=== PATIENT | female | born 1935 | race Caucasian/White ===

== ENCOUNTER 2017-01-28 16:45 | Emergency (ER) | payer MEDICARE ==
--- NOTE | 2017-01-28 19:29 | DIAGNOSTIC IMAGING REPORT ---
PROCEDURE: ABDOMEN/PELVIS WITH CONTRAST CLINICAL INDICATION: ABDOMINAL PAIN TECHNIQUE: 125 ml of Isovue 300 were injected intravenously and axial images were obtained of the abdomen and pelvis with sagittal and coronal reformations. COMPARISON: None. FINDINGS: ABDOMEN: There is mild diffuse intrahepatic biliary dilatation, distended gallbladder, and prominent common duct measuring between nine and 10 mm. There is a diverticulum measuring approximately 3 cm arising from the is second portion of the duodenum at the ampulla and extending cranially and posteriorly to the duodenal sweep. It contains an air-fluid level. No adjacent inflammation. The pancreas is normal without ductal dilatation. The distal stomach is decompressed and may demonstrate mild mural edema and slight mucosal hyperemia. No evidence of perforation or perigastric inflammation. Clear lung bases. Normal sized heart. No hiatal hernia. The liver, gallbladder, adrenal glands, kidneys, pancreas and spleen are normal. The abdominal aorta is normal in its course and caliber. Moderate calcific atherosclerosis. There are no suspicious calcifications, retroperitoneal adenopathy or masses. The upper small bowel loops, and mesentery are normal. Intact anterior abdominal wall. No free fluid or inflammation. Occasional diverticula in the ascending colon and sigmoid. No acute inflammation. PELVIS: The appendix and pelvic small bowel loops are normal. Normal amount of stool in the colon and rectum. The uterus is surgically absent. The urinary bladder, and pelvic vessels are normal. No adenopathy, free fluid, or pelvic mass. Sacralization of L5 with severe degenerative disc and endplate changes at the L4-5 level IMPRESSION: 1. Biliary and gallbladder dilatation (mild) without visible obstructing calculus. 2. 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 Correlation with LFTs recommended. 3. Changes of mild distal gastritis. 4. Occasional descending and sigmoid colon diverticulosis. 5. Post hysterectomy. 6. Findings called to the emergency room. All CT scans at this facility use dose modulation, iterative reconstruction, and/or weight-based dosing when appropriate to reduce radiation dose to as low as reasonably achievable.
--- NOTE | 2017-01-28 20:42 | ED ORDER SUMMARY ---
..... Patient: SOFI SCHNEIDER OrderSheet [facility] VisitID: [id number] [address] [place] [address] 81y, F Registration Date/Time: 01/28/2017 ORDER SHEET Weight: 68.0 kg (stated) Allergies: Codeine GENERAL ORDERS: CBC w Diff Urgent (16:59 01/28/2017 Dougie Willett) (Ack 17:04 TBergley) (17:13 KPacolin-Adeline R.N.) CMP Urgent (16:59 01/28/2017 Dougie Willett) (Ack 17:04 TBergley) (17:13 KPaTierra R.N.) UA-Culture if indicated Urgent (16:59 01/28/2017 Dougie Willett) (Ack 17:04 TBergley) (17:13 KPacolin-Adeline R.N.) PT with INR Urgent (16:59 01/28/2017 Dougie Willett) (Ack 17:04 TBergley) (17:13 KPacolin-Adeline R.N.) PTT Urgent (16:59 01/28/2017 oDugie Willett) (Ack 17:04 TBergley) (17:13 KPacolin-Adeline R.N.) Lipase Urgent (16:59 01/28/2017 Dougie Willett) (Ack 17:04 TBergley) (17:13 KPaTierra R.N.) Lactate, Serum Urgent (16:59 01/28/2017 Dougie Willett) (Ack 17:04 TBergley) (17:49 TBergley) CT Abd/Pel w Cont (Yes) (N/A) Urgent (17:48 01/28/2017 Dougie Willett) (17:52 TBergley) MEDICATION ORDERS: GI Cocktail WHITE PO 30 mL (NOW) (19:27 01/28/2017 Dougie Willett) (Ack 19:29 KPacolin-Adeline R.N.) (19:42 KPaTierra R.N.) Keflex PO 500 mg (NOW) (20:41 01/28/2017 Dougie Willett) (Ack 20:55 Antolin R.NJett) (20:58 Antolin R.NJett) IV FLUIDS: IV Saline Lock (16:59 01/28/2017 Dougie Willett) (17:13 Bee Elizalde.Karo) Morphine IV 4 mg (once now. may repeat once for pain >5/10 in 15 min) (17:47 01/28/2017 Dougie Willett) (Ack 18:02 obercinthya R.N.) (18:10 Araceli R.N.) ORDER SHEET NOTES: [Electronically signed by Bethany Moore R.N. (00:40 01/29/2017)] [Electronically signed by Tejinder Borrego Dr. (12:08 01/30/2017)] [Electronically locked/signed by Bethany Moore R.N. (00:40 01/29/2017)]
--- NOTE | 2017-01-28 20:42 | ED ORDER SUMMARY ---
..... Patient: SOFI SCHNEIDER OrderSheet [facility] VisitID: [id number] [address] [place] [address] 81y, F Registration Date/Time: 01/28/2017 ORDER SHEET Weight: 68.0 kg (stated) Allergies: Codeine GENERAL ORDERS: CBC w Diff Urgent (16:59 01/28/2017 Dougie Willett) (Ack 17:04 TBergley) (17:13 KPacolin-Adeline R.N.) CMP Urgent (16:59 01/28/2017 Dougie Willett) (Ack 17:04 TBergley) (17:13 KPaTierra R.N.) UA-Culture if indicated Urgent (16:59 01/28/2017 Dougie Willett) (Ack 17:04 TBergley) (17:13 KPacolin-Adeline R.N.) PT with INR Urgent (16:59 01/28/2017 Dougie Willett) (Ack 17:04 TBergley) (17:13 KPacolin-Adeline R.N.) PTT Urgent (16:59 01/28/2017 Dougie Willett) (Ack 17:04 TBergley) (17:13 KPacolin-Adeline R.N.) Lipase Urgent (16:59 01/28/2017 Dougie Willett) (Ack 17:04 TBergley) (17:13 KPaTierra R.N.) Lactate, Serum Urgent (16:59 01/28/2017 Dougie Willett) (Ack 17:04 TBergley) (17:49 TBergley) CT Abd/Pel w Cont (Yes) (N/A) Urgent (17:48 01/28/2017 Dougie Willett) (17:52 TBergley) MEDICATION ORDERS: GI Cocktail WHITE PO 30 mL (NOW) (19:27 01/28/2017 Dougie Willett) (Ack 19:29 KPacolin-Adeline R.N.) (19:42 KPaTierra R.N.) Keflex PO 500 mg (NOW) (20:41 01/28/2017 Dougie Willett) (Ack 20:55 Antolin R.NJett) (20:58 Antolin R.NJett) IV FLUIDS: IV Saline Lock (16:59 01/28/2017 Dougie Willett) (17:13 Bee Elizalde.Karo) Morphine IV 4 mg (once now. may repeat once for pain >5/10 in 15 min) (17:47 01/28/2017 Dougie Willett) (Ack 18:02 obercinthya R.N.) (18:10 Araceli R.N.) ORDER SHEET NOTES: [Electronically signed by Bethany Moore R.N. (00:40 01/29/2017)] [Electronically signed by Tejinder Borrego Dr. (12:08 01/30/2017)] [Electronically locked/signed by Bethany Moore R.N. (00:40 01/29/2017)]
--- NOTE | 2017-01-28 20:42 | ED CLINICAL REPORT ---
Clinical Report - Physicians/Mid Levels [facility] [address] [place] [address] 01/28/2017 16:52 Patient: SOFI SCHNEIDER Time Seen: 1645. Arrived- By private vehicle. Historian- patient. HISTORY OF PRESENT ILLNESS Chief Complaint: ABDOMINAL PAIN. This started today and is still present and worsening. It was gradual in onset and has been constant but is not gone now. It is described as "pain" and sharp. No radiation. It is described as located in the epigastric area. At its maximum, severity described as severe. When seen in the E.D., severity described as severe. Modifying factors- (does not know makes it better or worse). The patient has had nausea. No loss of appetite, vomiting or diarrhea. No additional abdominal pain. (had recently stopped taking her antacid medication.). No recent travel. Similar symptoms previously: None. Recent medical care: Not recently seen/assessed. REVIEW OF SYSTEMS All systems otherwise negative, except as recorded above. PAST HISTORY See nurses notes. Medications: Sertraline HCl Oral. Omeprazole Oral. Allergies: Codeine. SOCIAL HISTORY Never smoker. Occasional alcohol use. No drug use. No recent travel. Is a local resident. ADDITIONAL NOTES The nursing notes have been reviewed. PHYSICAL EXAM Vital Signs: 01/28/2017 16:58 BP: 174/78. HR: 76. RR: 19. O2 saturation: 99%. Temp: 98.1 F. Pain level now: 9/10. Oxygen saturation normal. Appearance: Alert. Oriented X3. Patient in moderate distress. (ontoxic in appearance). Eyes: Pupils equal, round and reactive to light. Eyes normal inspection. ENT: Ears normal. Nose normal. Pharynx normal. Neck: Normal inspection. Neck supple. CVS: Normal heart rate and rhythm. Heart sounds normal. Pulses normal. Respiratory: No respiratory distress. Breath sounds normal. Chest nontender. Abdomen: Soft. Moderate tenderness in the epigastric area. Bowel sounds normal. No organomegaly. No mass. (negative Ceballos's. No tenderness at McBurney's.). Skin: Skin warm and dry. Normal skin color. No rash. Normal skin turgor. Extremities: Extremities exhibit normal ROM. No lower extremity edema. Neuro: Oriented X 3. No motor deficit. No sensory deficit. LABS, X-RAYS, AND EKG Laboratory Tests: UA-Culture if indicated: (MABEL: 01/28/2017 17:05) ( [facility] 01/28/2017 17:28) Final results Test Result Flag Units (Reference) URINE COLOR YELLOW URINE APPEARANCE SL CLOUDY URINE GLUCOSE NEGATIVE (NEGATIVE) URINE BILIRUBIN NEGATIVE (NEGATIVE) URINE KETONE NEGATIVE (NEGATIVE) URINE SPECIFIC GRAVITY 1.020 (1.010-1.030) URINE PH 6.0 (5.0-8.0) URINE PROTEIN NEGATIVE (NEGATIVE) URINE UROBILINOGEN 1.0 EU/dL (0.2-1.0) URINE NITRITE NEGATIVE (NEGATIVE) URINE BLOOD 2+ (NEGATIVE) URINE LEUK ESTERASE POSITIVE (NEGATIVE) URINE RBC 1-3 rbc/hpf (0-1) URINE WBC 3-5 wbc/hpf (0-1) URINE EPITHELIAL CELLS 1-3 EPI/hpf (0-5) URINE BACTERIA FEW (1+) (NONE SEEN) URINE COMMENT CULTURE INDICATED URINE CULTURES ARE SET-UP BASED ON THE FOLLOWING CRITERIA:POSITIVE NITRITEPOSITIVE LEUKOCYTE ESTERASEGREATER THAN 10 WHITE BLOOD CELLSMODERATE (2+) OR GREATER BACTERIA CBC w Diff: (MABEL: 01/28/2017 17:05) ( [facility] 01/28/2017 17:20) Final results Test Result Flag Units (Reference) WHITE BLOOD COUNT 8.5 K/uL (4.5-11.5) RED BLOOD COUNT 4.24 M/uL (4.00-5.20) HEMOGLOBIN 13.8 gm/dL (12.0-16.0) HEMATOCRIT 40.4 % (36.0-46.0) MEAN CELL VOLUME 96 fL (80-100) MEAN CORPUSCULAR HGB 33 pg (26-34) MEAN CORPUSCULAR HGB CONC 34 g/dL (31-37) RED CELL DISTRIBUTION WIDTH 13.4 % (11.6-14.8) PLATELET COUNT 209 K/uL (150-400) NEUTROPHIL % 69.1 % (50-75) LYMPH % 23.0 L % (25-40) MONO % 6.5 % (3-14) EOSINOPHIL % 1.0 % (0-4) BASOPHIL % 0.4 % (0-2) PT with INR: (MABEL: 01/28/2017 17:05) ( [facility] 01/28/2017 17:22) Final results Test Result Flag Units (Reference) INR 1.0 (0.8-1.2) Low Intensity Therapy: INR 1.5-2.0 PT range 18.5-23.1Mod.Intensity Therapy: INR 2.0-3.0 PT range 23.1-31.5High Intensity Therapy: INR 2.5-3.5 PT range 27.4-35.5High Intensity Therapy 2: INR 3.0-4.0 PT range 31.5-39.3 APTT 28 SECONDS (24-34) Lactate, Serum: (MABEL: 01/28/2017 17:50) ( [facility] 01/28/2017 18:29) Final results Test Result Flag Units (Reference) LACTIC ACID 1.4 mmol/L (0.4-2.0) CMP: (MABEL: 01/28/2017 17:05) ( [facility] 01/28/2017 17:31) Final results Test Result Flag Units (Reference) GLUCOSE 126 H mg/dL (70-110) BUN 17 mg/dL (7-18) CREATININE 0.8 mg/dL (0.6-1.3) Estimated GFR >60 mL/min Estimated GFR- >60 mL/min Note: Persistent reduction over 3 months in eGFR<60 mL/min/1.73 m2 defines CKD. Patients with eGFR values>=60 mL/min/1.73 m2 may also have CKD if evidence ofpersistent proteinuria. Additional information may be foundat www.kidney.org. SODIUM 145 mmol/L (136-145) POTASSIUM 3.9 mmol/L (3.5-5.1) CHLORIDE 106 mmol/L (98-107) CARBON DIOXIDE 25 mmol/L (21-32) CALCIUM 9.0 mg/dL (8.5-10.1) TOTAL PROTEIN 7.8 g/dL (6.4-8.2) ALBUMIN 4.0 g/dL (3.3-5.0) BILIRUBIN, TOTAL 0.8 mg/dL (0.0-1.0) ALKALINE PHOSPHATASE 88 U/L (46-116) AST (SGOT) 82 H U/L (15-37) ALT (SGPT) 52 U/L (12-78) LIPASE 108 U/L (73-393) . PROGRESS AND PROCEDURES Course of Care: The patient is a pleasant 81-year-old female presented for evaluation of epigastric abdominal pain. Patient recently stopped taking her antacid medication. At this time differential diagnosis includes peptic ulcer disease, acute cholecystitis, peritonitis,and less likely AAA. Patient will be evaluated with CT scan of the abdomen and pelvis with contrast. laboratory studies including urinalysis and also been ordered. Patient appears nontoxic cover is in a moderate amount of distress. Pain medication has been provided. We'll reevaluate once the pain medication as been given. Patient was reevaluated and found to be resting in bed in much more comfortable position. Patient states he feels extremely relieved however does state that she still feels it slightly. Patient also given a GI cocktail. Rest the patient's laboratory studies is pending at this time. However at this point in timeappears to be reassuring. Blood pressure is noted to be not hypotensive. The patient's workup was remarkable for the findings above. No acute findings noted on patient's CT scan to explain patient's severe abdominal pain however patient with recent cessation of antacid medication and likely with peptic ulcer disease versus gastroesophageal reflux/gastritis. Had a discussion with the patient in regards to her presentation here in the emergency department for workup, diagnosis, home care, follow-up, and return precautions. All questions have been answered. The patient expressed understanding of these instructions and was agreeable to that. Prior to patient's departure from the emergency department she is noted to have a nonsurgical abdomen. Patient is nontoxic and in no acute distress. Pain is now completely relieved. Tonight the patient is admitted to the hospital or require further emergency department workup/evaluation given her negativestudies here as well as resolution of pain. CLINICAL IMPRESSION Acute epigastric abdominal pain. 01/28/2017 20:01 BP: 160/71. HR: 73. RR: 18. Pain level now: 0/10. 01/28/2017 19:43 BP: 160/71. HR: 72. RR: 18. O2 saturation: 96%. Pain level now: 2/10. Blood pressure normal. Oxygen saturation normal. Acute gastritis Acute urinary tract infection. INSTRUCTIONS Warnings: SEDATIVE MEDICATION: You were given sedative medication during your visit. Do not drive or operate dangerous machinery. CONTROLLED SUBSTANCE WARNINGS. GENERAL WARNINGS: Return or contact your physician immediately if your condition worsens or changes unexpectedly, if not improving as expected, or if other problems arise. SPECIFICALLY, return if you develop pain, fever, vomiting, the inability to keep fluids down, blood in vomitus, blood in diarrhea, fainting or lightheadedness. Your Current Medications: CONTINUE TAKING THE FOLLOWING MEDICATIONS: Omeprazole Oral. Sertraline HCl Oral. Prescription Medications: Hydrocodone/APAP 5mg / 325mg: take 1 orally every 6 hours as needed for pain. Dispense ten (10). No refill. Carafate 1 gm tablets: take 1 orally at bedtime as needed for indigestion, upset stomach or heartburn. Dispense thirty (30). No refills. Substitution is permissible. Cephalexin 500 mg: take 1 capsule orally every 8 hours for 5 days. No refill. (disp 15 caps) Follow-up: Return to the emergency department as needed. Follow up with your doctor in three days. Reason for referral: recheck today's concerns. Summary of care provided to patient via paper. Screening today revealed the patient's blood pressure to be in the normal range. The patient should follow up with a primary care provider for blood pressure management. Understanding of the discharge instructions verbalized by patient and family. (Electronically signed by Tejinder Borrego Dr. 01/30/2017 12:08)
--- NOTE | 2017-01-28 20:42 | ED NURSING NOTES ---
Clinical Report - Nurses [facility] [address] [place] [address] 01/28/2017 16:52 Patient: SOFI SCHNEIDER TRIAGE Triage time 16:58 Jan 28 2017. Chief Complaint: ABDOMINAL PAIN and (pt reports sudden onset of epigastric pain after taking a sudafed and orange drink "I had acid reflux and it burnt my throat" pt arrives tearful, describes as "a terrible cramp"). Alert. --17:08 Bethany Moore R.N. 16:58 01/28/17. BP: 174/78. HR: 76. RR: 19 (regular and shallow). O2 saturation: 99% on room air. Temp: 98.1 F. Pain level now: 06/03. --17:08 Bethany Moore R.N. Weight: 68 kg stated. Height/Length: 60 inches Per Patient. BMI: 29.3. --17:03 Bethany Moore R.N. Medications Omeprazole Oral. --17:01 Bethany Moore R.N. Sertraline HCl Oral. --17:01 Bethany Moore R.N. Medication/allergy information source: the patient. --17:08 Bethany Moore R.N. Allergies Codeine. --17:02 Bethany Moore R.N. History Arrived by private vehicle. Historian: patient and family. Accompanied by family and (daughter). ( pt does not have her med list and is unsure - pts spouse passed on November 25 per daughter "and she's been very stressed since"). She has had moderate abdominal pain (30 minutes). Last oral intake by patient was (45 minutes). Treatment CURATOR OF PHOTOGRAPHY AND PRINTS: None. (sudafed). SOCIAL HX: Smoker- current status unknown (cigarette). Occasional alcohol use; consumes wine. No recent travel. No infectious disease exposure. No known contact with a sick individual. ABUSE ASSESSMENT: No report of abuse. SELF HARM ASSESSMENT: A self harm assessment was performed. The patient answered "no" to the question "Have you recently felt down, depressed, or hopeless?", "Have you noticed less interest or pleasure in doing things?", "Do you have thoughts of harming or killing yourself?", "Are you here because you tried to hurt yourself?", "Have you ever tried to hurt yourself before today?", "Have you recently had thoughts about harming or killing others?" and "Do you have any dangerous items in your possession?". NUTRITIONAL RISK ASSESSMENT: The nutritional risk assessment revealed no deficiencies. FUNCTIONAL ASSESSMENT: Functional assessment: no impairments noted. LEARNING NEEDS ASSESSMENT: The learning needs assessment revealed no barriers. SKIN INTEGRITY ASSESSMENT: Skin integrity risk assessment completed. No skin integrity risk identified. --17:08 Bethany Moore R.N. PROBLEMS: Breast Cancer. Hypertension. Elevated Cholesterol. Diabetes Mellitus. Depression. --17:04 Bethany Moore R.N. ADDITIONAL SURGERIES: Breast Augmentation. Hysterectomy. --17:04 Bethany Moore R.N. Interventions ID and allergy band on patient. To treatment room. --17:08 Bethany Moore R.N. PHYSICAL ASSESSMENT Ambulatory to room. Patient gowned. GENERAL / NEURO / PSYCH: Alert. Oriented X 4. Appears in pain and anxious. HEENT: Mucous membranes are pink. RESPIRATORY: Respirations not labored. Breath sounds within normal limits. CVS: Capillary refill less than 2 seconds. GI / : Abdomen soft. Bowel sounds within normal limits. No diarrhea. No vaginal discharge. Stool color normal. No blood in the stool. SKIN: Skin is warm and dry. --17:10 Bethany Moore R.N. NURSING PROGRESS NOTES Pulse oximeter and NIBP monitor placed on patient; monitor alarms on. Patient gowned. Head of bed elevated. Patient ID band checked for patient name and birthdate: patient confirmed. Instructions provided to collect clean catch urine and patient verbalized understanding. Clean catch urine collected; sample sent to lab for urinalysis. Specimen labeled in the presence of the patient. Two patient identifiers checked. Call light placed in reach. Side rails up x 1. Bed placed in lowest position. Brakes of bed on. Patient ready for evaluation- chart flagged. Patient waiting for evaluation. --17:11 Bethany Moore R.N. 17:06 01/28/2017 Site #1 started via IV in the left antecubital space with an 22g angiocath; one attempt. Blood drawn: rainbow set. Labeled in the presence of the patient and sent to the lab. Saline lock flushed with 10 mL saline (placed by Bita HATHAWAY). --17:11 Bethany Moore R.N. ( pt during triage reports decrease in pain, pt also remembers she hasn't taken her omeprazole for a week.). --17:13 Bethany Moore R.N. 17:14 01/28/17. BP: 165/64. HR: 72. --17:14 Bethany Moore R.N. 18:10 01/28/2017 Morphine IVP 4 mg given over 1 minute(s) via site #1. Allergies verified, confirmed 5 rights and sedative warning given to the patient. IV patency established. IV site checked: no pain, redness, or swelling. IV flushed thoroughly pre- and post-medication administration. IVP given by RN. --18:[address] R.N. Patient returned from CT by stretcher with tech. --18:[address] R.N. ( Patient rates pain at 3/10 at this time.). --18:[address] R.N. 18:50 01/28/17. BP: 154/60. HR: 72 (regular). --18:50 Bethany Moore R.N. Patient identifiers checked. Call light placed in reach. Side rails up. Bed placed in lowest position. Brakes of bed on. ( daughter at bedside). --18:51 Bethany Moore R.N. 19:37 01/28/2017 GI COCKTAIL WHITE (Simethicone) PO 30 mL given. Allergies verified and confirmed 5 rights. --19:42 Page-Kuchan, Karyol, R.N. Call light placed in reach. Side rails up x 1. ( pt reports improvement in symptoms, reports "it's not cramping anymore, but I can still feel it is there" pt given white gi cocktail as ordered.). --19:44 Bethany Moore R.N. 19:43 01/28/17. BP: 160/71. HR: 72. RR: 18. O2 saturation: 96%. Pain level now: 210. --19:44 Bethany Moore R.N. ( pt now pain free following gi cocktail). --20:01 Bethany Moore R.N. 20:01 01/28/17. BP: 160/71. HR: 73. RR: 18. Pain level now: 0/10. --20:02 Bethany Moore R.N. 20:58 01/28/2017 Keflex (Cephalexin) PO Capsules 500 mg given. Allergies verified and confirmed 5 rights. --20:58 Davian Tejada R.N. 20:58 01/28/2017 GI COCKTAIL WHITE PO Response: no adverse reaction symptoms are the same. The patient feels better. --20:58 Davian Tejada R.N. 20:58 01/28/2017 Morphine IVP Response: no adverse reaction pain is improving. Symptoms have improved the patient feels better. --20:58 Davian Tejada R.N. DISPOSITION / DISCHARGE Departure time: 21:Jan 28 2017. Condition at departure: improved. No learning barriers present. Discharge instructions provided and reviewed with the patient. Reviewed medication(s) side effects, precautions, dosing and course information. Prescription(s) given to the patient. Reviewed referral to a primary care physician. Patient verbalized understanding. Written instructions provided in [place]. The patient was discharged home and accompanied by family. She left the Emergency Department ambulatory and via private vehicle. Family member driving. FALL RISK ASSESSMENT: Fall risk assessment completed. No fall risk identified. --21:09 Carmelita Thomas R.N. 21:01 01/28/17. BP: 139/52. HR: 66. RR: 16. O2 saturation: 94%. Pain level now: 0/10. --21:09 Carmelita Thomas R.N. Locked/Released at 01/29/2017 0:41 by Bethany Moore R.N.
--- NOTE | 2017-01-30 12:08 | ED DISCHARGE INSTRUCTIONS ---
Patient: SOFI SCHNEIDER General Instructions [facility] VisitID: [id number] [address] [place] [address] 81y, F Registration Date/Time: 01/28/2017 Acute epigastric abdominal pain. 01/28/2017 20:01 BP: 160/71. HR: 73. RR: 18. Pain level now: 0/10. 01/28/2017 19:43 BP: 160/71. HR: 72. RR: 18. O2 saturation: 96%. Pain level now: 2/10. Blood pressure normal. Oxygen saturation normal. Acute gastritis Acute urinary tract infection. INSTRUCTIONS Warnings: SEDATIVE MEDICATION: You were given sedative medication during your visit. Do not drive or operate dangerous machinery. CONTROLLED SUBSTANCE WARNINGS. GENERAL WARNINGS: Return or contact your physician immediately if your condition worsens or changes unexpectedly, if not improving as expected, or if other problems arise. SPECIFICALLY, return if you develop pain, fever, vomiting, the inability to keep fluids down, blood in vomitus, blood in diarrhea, fainting or lightheadedness. Your Current Medications: CONTINUE TAKING THE FOLLOWING MEDICATIONS: Omeprazole Oral. Sertraline HCl Oral. Prescription Medications: Hydrocodone/APAP 5mg / 325mg: take 1 orally every 6 hours as needed for pain. Dispense ten (10). No refill. Carafate 1 gm tablets: take 1 orally at bedtime as needed for indigestion, upset stomach or heartburn. Dispense thirty (30). No refills. Substitution is permissible. Cephalexin 500 mg: take 1 capsule orally every 8 hours for 5 days. No refill. (disp 15 caps) Follow-up: Return to the emergency department as needed. Follow up with your doctor in three days. Reason for referral: recheck today's concerns. Summary of care provided to patient via paper. Screening today revealed the patient's blood pressure to be in the normal range. The patient should follow up with a primary care provider for blood pressure management. Understanding of the discharge instructions verbalized by patient and family. ADDITIONAL INFORMATION Abdominal Pain, Unknown Cause (Female) The exact cause of your abdominal (stomach) pain is not certain. This does not mean that this is something to worry about, or the right tests were not done. Everyone likes to know the exact cause of the problem, but sometimes with abdominal pain, there is no clear-cut cause, and this could be a good thing. The good news is that your symptoms can be treated, and you will feel better. Your condition does not seem serious now; however, sometimes the signs of a serious problem may take more time to appear. For this reason,it is important for you to watch for any new symptoms, problems,or worsening of your condition. Over the next few days, the abdominal pain may come and go, or be continuous. Other common symptoms can include nausea and vomiting. Sometimes it can be difficult to tell if you feel nauseous, you may just feel bad and not associate that feeling with nausea. Constipation, diarrhea, and a fever may go along with the pain. The pain may continue even if treated correctly over the following days. Depending on how things go, sometimes the cause can become clear and may require further or different treatment. Additional evaluations, medications, or tests may be needed. Home care Your health care provider may prescribe medications for pain, symptoms, or an infection. Follow the health care provider's instructions for taking these medications. General care Rest until your next exam. No strenuous activities. Try to find positions that ease discomfort. A small pillow placed on the abdomen may help relieve pain. Something warm on your abdomen (such as a heating pad) may help, but be careful not to burn yourself. Diet Do not force yourself to eat, especially if having cramps, vomiting, or diarrhea. Water is important so you do not get dehydrated. Soup may also be good. Sports drinks may also help, especially if they are not too acidic. Make sure you don't drink sugary drinks as this can make things worse. Take liquids in small amounts. Do not guzzle them. Caffeine sometimes makes the pain and cramping worse. Avoid dairy products if you have vomiting or diarrhea. Don't eat large amounts at a time. Wait a few minutes between bites. Eat a diet low in fiber (called a low-residue diet). Foods allowed include refined breads, white rice, fruit and vegetable juices without pulp, tender meats. These foods will pass more easily through the intestine. Avoid whole-grain foods, whole fruits and vegetables, meats, seeds and nuts, fried or fatty foods, dairy, alcohol and spicy foods until your symptoms go away. Follow-up care Follow up with your health care provider as instructed, or if your pain does not begin to improve in the next 24 hours. When to seek medical care Seek prompt medical care if any of the following occur: Pain gets worse or moves to the right lower abdomen New or worsening vomiting or diarrhea Swelling of the abdomen Unable to pass stool for more than three days Fever of 100.4F (38C) or higher, or as directed by your healthcare provider. Blood in vomit or bowel movements (dark red or black color) Jaundice (yellow color of eyes and skin) Weakness, dizziness Chest, arm, back, neck or jaw pain Unexpected vaginal bleeding or missed period Call 911 Call emergency services if any of the following occur: Trouble breathing Confusion Fainting or loss of consciousness Rapid heart rate Seizure Gastritis Versus Ulcer (No Antibiotic Tx) The symptoms of gastritis and peptic ulcer are very similar. Both can cause a dull ache or burning pain in the upper abdomen. Other symptoms include nausea, vomiting, loss of appetite, and belching or bloating. Blood in the vomit or stools (red or black) is a sign of bleeding in the stomach. This requires immediate medical attention. A Peptic Ulcer is an open sore in the lining of the stomach or duodenum (upper intestine). The most common cause of peptic ulcer disease is a bacterial infection (H pylori) in the stomach. Another common cause is taking anti-inflammatory medications (such as ibuprofen, prednisone, and aspirin). Gastritis is an irritation of the stomach lining. It can be acute (recent) or chronic (lasting a long time). Gastritis can be caused by overuse of alcohol or anti-inflammatory medications (such as aspirin, ibuprofen, prednisone). H pyloriinfection can also cause chronic gastritis. Tests for H pyloriare used to screen for bacterial infection. If no infection is found, ulcer and gastritis can be treated by stopping the cause, such as anti-inflammatory medications, alcohol, caffeine, and tobacco, and treating with antacids plus an acid asael medication. If H pylori infection is found, antibiotics will be prescribed along with an acid asael. Persons 55 years and older may undergo other tests before treatment is started. Two common tests are used to evaluate your symptoms. An upper GI series is an x-ray taken after you drink a chalky liquid called barium. This coats the stomach and allows an ulcer to show up on the x-ray. Another test is called endoscopy during which a long thin tube called an endoscope is passed down your throat to the stomach. A camera at the end of the scope allows the doctor to view inside the stomach to check the cause of your symptoms. Home Care: Take the prescribed acid asael medication for the full course of treatment even if you begin to feel better sooner. This medication can take up to several days to fully control your symptoms. If you cant afford the prescribed medication, you can try [id number] acid blockers, such as Pepcid AC, Tagamet, Zantac, or Aciphex. If these do not relieve your symptoms, a stronger acid-asael can be tried, such as Prilosec OTC. If you have been prescribed an antibiotic to treat H pyloriinfection, finish the full course of medication. Do so even if you begin to feel better sooner. If you stop the medication too soon, the infection can return and be harder to treat. You can use antacids, such as Tums, Rolaids, Mylanta, or Maalox, for pain. This will be useful the first few days after starting acid blockers when the blockers havent started working yet. Follow the directions on the label. Liquid antacids may work better than tablets. Note that antacids can interfere with absorption of certain medications. Specifically, do not take Tagamet (cimetidine), Zantac (ranitidine), or Carafate (sucralfate) within 1 hour of taking an antacid. Talk with your pharmacist if you have any questions. Although foods do not cause an ulcer, symptoms can be worsened by certain foods. Limit or avoid fatty, fried, and spicy foods, as well as coffee, chocolate, mint, and foods with high acid content such as tomatoes and citrus fruit and juices (orange, grapefruit, lemon). Avoid alcohol, caffeine, and tobacco, which can delay healing. Avoid aspirin and anti-inflammatory medications such as ibuprofen (Advil, Motrin) and naproxen (Naprosyn, Aleve). Acetaminophen (Tylenol) is safe to use. Do not take more than the amount listed on the label. Follow Up with your doctor or as advised. Further testing may be needed. If you do not begin to improve over the next 4 days, contact your doctor. If you had tests, youll be notified of any new findings that affect your care. Get Prompt Medical Attention if any of the following occur: Stomach pain gets worse or moves to the lower right abdomen (appendix area) Chest pain appears or gets worse, or spreads to the back, neck, shoulder, or arm Frequent vomiting (cant keep down liquids) Blood in the stool or vomit (red or black in color) Feeling weak or dizzy, fainting, or trouble breathing Fever of 100.4F (38C) or higher, or as directed by your healthcare provider Bladder Infection,Female (Adult) A bladder infection ("cystitis" or "UTI") usually causes a constant urge to urinate and a burning when passing urine. Urine may be cloudy, smelly or dark. There may be pain in the lower abdomen. A bladder infection occurs when bacteria from the vaginal area enter the bladder opening (urethra). This can occur from sexual intercourse, wearing tight clothing, dehydration and other factors. Home Care: Drink lots of fluids (at least 6-8 glasses a day, unless you must restrict fluids for other medical reasons). This will force the medicine into your urinary system and flush the bacteria out of your body. Avoid sexual intercourse until your symptoms are gone. Avoid caffeine, alcohol and spicy foods. These can irritate the bladder. A bladder infection is treated with antibiotics. You may also be given Pyridium (generic = phenazopyridine) to reduce the burning sensation. This medicine will cause your urine to become a bright orange color. The orange urine may stain clothing. You may wear a pad or panty-liner to protect clothing. Preventing Future Infections: Always wipe from front to back after a bowel movement. Keep the genital area clean and dry. Drink plenty of fluids each day to avoid dehydration. Both sexual partners should wash before intercourse. Urinate right after intercourse to flush out the bladder. Wear cotton underwear and cotton-lined panty hose; avoid tight-fitting pants. If you are on control pills and are having frequent bladder infections, discuss with your doctor. Follow Up: Return to this facility or see your doctor if ALL symptoms are not gone after three days of treatment. Get Prompt Medical Attention if any of the following occur: Fever of 100.4F (38C) or higher, or as directed by your healthcare provider No improvement by the third day of treatment Increasing back or abdominal pain Repeated vomiting; unable to keep medicine down Weakness, dizziness or fainting Vaginal discharge Pain, redness or swelling in the labia (outer vaginal area) Hydrocodone Bitartrate, Acetaminophen Oral tablet What is this medicine? ACETAMINOPHEN; HYDROCODONE (a set a JACOBO mesfin fen; carmen droe KOE done) is a pain reliever. It is used to treat mild to moderate pain. How should I use this medicine? Take this medicine by mouth. Swallow it with a full glass of water. Follow the directions on the prescription label. If the medicine upsets your stomach, take the medicine with food or milk. Do not take more than you are told to take. Talk to your blankbook forwarder regarding the use of this medicine in children. This medicine is not approved for use in children. What side effects may I notice from receiving this medicine? Side effects that you should report to your doctor or health primary care provider as soon as possible: allergic reactions like skin rash, itching or hives, swelling of the face, lips, or tongue breathing problems confusion feeling faint or lightheaded, falls stomach pain yellowing of the eyes or skin Side effects that usually do not require medical attention (report to your doctor or health primary care provider if they continue or are bothersome): nausea, vomiting stomach upset What may interact with this medicine? alcohol antihistamines isoniazid medicines for depression, anxiety, or psychotic disturbances medicines for sleep muscle relaxants naltrexone narcotic medicines (opiates) for pain phenobarbital ritonavir tramadol What if I miss a dose? If you miss a dose, take it as soon as you can. If it is almost time for your next dose, take only that dose. Do not take double or extra doses. Where should I keep my medicine? Keep out of the reach of children. This medicine can be abused. Keep your medicine in a safe place to protect it from theft. Do not share this medicine with anyone. Selling or giving away this medicine is dangerous and against the law. Store at room temperature between 15 and 30 degrees C (59 and 86 degrees F). Protect from light. Keep container tightly closed. Throw away any unused medicine after the expiration date. Discard unused medicine and used packaging carefully. Pets and children can be harmed if they find used or lost packages. What should I tell my health care provider before I take this medicine? They need to know if you have any of these conditions: brain tumor Crohn's disease, inflammatory bowel disease, or ulcerative colitis drink more than 3 alcohol-containing drinks per day drug abuse or addiction head injury heart or circulation problems kidney disease or problems going to the bathroom liver disease lung disease, asthma, or breathing problems an unusual or allergic reaction to acetaminophen, hydrocodone, other opioid analgesics, other medicines, foods, dyes, or preservatives or trying to get breast-feeding What should I watch for while using this medicine? Tell your doctor or health primary care provider if your pain does not go away, if it gets worse, or if you have new or a different type of pain. You may develop tolerance to the medicine. Tolerance means that you will need a higher dose of the medicine for pain relief. Tolerance is normal and is expected if you take the medicine for a long time. Do not suddenly stop taking your medicine because you may develop a severe reaction. Your body becomes used to the medicine. This does NOT mean you are addicted. Addiction is a behavior related to getting and using a drug for a non-medical reason. If you have pain, you have a medical reason to take pain medicine. Your doctor will tell you how much medicine to take. If your doctor wants you to stop the medicine, the dose will be slowly lowered over time to avoid any side effects. You may get drowsy or dizzy when you first start taking the medicine or change doses. Do not drive, use machinery, or do anything that may be dangerous until you know how the medicine affects you. Stand or sit up slowly. There are different types of narcotic medicines (opiates) for pain. If you take more than one type at the same time, you may have more side effects. Give your health care provider a list of all medicines you use. Your doctor will tell you how much medicine to take. Do not take more medicine than directed. Call emergency for help if you have problems breathing. The medicine will cause constipation. Try to have a bowel movement at least every 2 to 3 days. If you do not have a bowel movement for 3 days, call your doctor or health primary care provider. Too much acetaminophen can be very dangerous. Do not take Tylenol (acetaminophen) or medicines that contain acetaminophen with this medicine. Many non-prescription medicines contain acetaminophen. Always read the labels carefully. Sucralfate Oral tablet What is this medicine? SUCRALFATE (ANDIE que fate) helps to treat ulcers of the intestine. How should I use this medicine? Take this medicine by mouth with a glass of water. Follow the directions on the prescription label. This medicine works best if you take it on an empty stomach, 1 hour before meals. Take your doses at regular intervals. Do not take your medicine more often than directed. Do not stop taking except on your doctor's advice. Talk to your blankbook forwarder regarding the use of this medicine in children. Special care may be needed. What side effects may I notice from receiving this medicine? Side effects that you should report to your doctor or health primary care provider as soon as possible: allergic reactions like skin rash, itching or hives, swelling of the face, lips, or tongue difficulty breathing Side effects that usually do not require medical attention (report to your doctor or health primary care provider if they continue or are bothersome): back pain constipation drowsy, dizzy dry mouth headache stomach upset, gas trouble sleeping What may interact with this medicine? antacid cimetidine digoxin ketoconazole phenytoin quinidine ranitidine some antibiotics like ciprofloxacin, norfloxacin, and ofloxacin theophylline thyroid hormones warfarin What if I miss a dose? If you miss a dose, take it as soon as you can. If it is almost time for your next dose, take only that dose. Do not take double or extra doses. Where should I keep my medicine? Keep out of the reach of children. Store at room temperature between 15 and 30 degrees C (59 and 86 degrees F). Keep container tightly closed. Throw away any unused medicine after the expiration date. What should I tell my health care provider before I take this medicine? They need to know if you have any of these conditions: kidney disease an unusual or allergic reaction to sucralfate, other medicines, foods, dyes, or preservatives or trying to get breast-feeding What should I watch for while using this medicine? Visit your doctor or health primary care provider for regular check ups. Let your doctor know if your symptoms do not improve or if you feel worse. Antacids should not be taken within one half hour before or after this medicine. Cephalexin Monohydrate Oral tablet What is this medicine? CEPHALEXIN (sef a MOMO in) is a cephalosporin antibiotic. It is used to treat certain kinds of bacterial infections It will not work for colds, flu, or other viral infections. How should I use this medicine? Take this medicine by mouth with a full glass of water. Follow the directions on the prescription label. This medicine can be taken with or without food. Take your medicine at regular intervals. Do not take your medicine more often than directed. Take all of your medicine as directed even if you think you are better. Do not skip doses or stop your medicine early. Talk to your blankbook forwarder regarding the use of this medicine in children. While this drug may be prescribed for selected conditions, precautions do apply. What side effects may I notice from receiving this medicine? Side effects that you should report to your doctor or health primary care provider as soon as possible: allergic reactions like skin rash, itching or hives, swelling of the face, lips, or tongue breathing problems pain or trouble passing urine redness, blistering, peeling or loosening of the skin, including inside the mouth severe or watery diarrhea unusually weak or tired yellowing of the eyes, skin Side effects that usually do not require medical attention (report to your doctor or health primary care provider if they continue or are bothersome): gas or heartburn genital or anal irritation headache joint or muscle pain nausea, vomiting What may interact with this medicine? probenecid some other antibiotics What if I miss a dose? If you miss a dose, take it as soon as you can. If it is almost time for your next dose, take only that dose. Do not take double or extra doses. There should be at least 4 to 6 hours between doses. Where should I keep my medicine? Keep out of the reach of children. Store at room temperature between 59 and 86 degrees F (15 and 30 degrees C). Throw away any unused medicine after the expiration date. What should I tell my health care provider before I take this medicine? They need to know if you have any of these conditions: kidney disease stomach or intestine problems, especially colitis an unusual or allergic reaction to cephalexin, other cephalosporins, penicillins, other antibiotics, medicines, foods, dyes or preservatives or trying to get breast-feeding What should I watch for while using this medicine? Tell your doctor or health primary care provider if your symptoms do not begin to improve in a few days. Do not treat diarrhea with over the counter products. Contact your doctor if you have diarrhea that lasts more than 2 days or if it is severe and watery. If you have diabetes, you may get a false-positive result for sugar in your urine. Check with your doctor or health primary care provider. You have been given the following additional information: Abdominal Pain, Unknown Cause, (Female) Gastritis Vs. Ulcer Bladder Infection, Female (Adult) Hydrocodone Bitartrate, Acetaminophen Oral tablet Sucralfate Oral tablet Cephalexin Monohydrate Oral tablet (Electronically signed by Tejinder Borrego Dr. 01/30/2017 12:08)
--- NOTE | 2017-01-30 12:08 | ED MAR SUMMARY ---
..... Medication Administration Record [facility] [address] [place] [address] Patient: SOFI SCHNEIDER Visit ID: [id number] 81y, F Weight: 68.0 kg Height/Length: 60 in BMI: 29.3 ALLERGIES: Codeine Given 18:10 01/28/[address] RAniceto Medication Administered: MORPHINE [IVP], Dose: 4 mg IVP over 1 minute(s), Site: #1 left AC. Medication Ordered: Morphine IV 4 mg (once now. may repeat once for pain >5/10 in 15 min). Given 19:37 01/28/2017 Bethany Moore RAniceto Medication Administered: GI COCKTAIL WHITE [PO] (SIMETHICONE), Dose: 30 mL PO. Medication Ordered: GI Cocktail WHITE PO 30 mL (NOW). Given 20:58 01/28/2017 Davian Tejada RJettNJett Medication Administered: KEFLEX [PO] (CEPHALEXIN), Dose: 500 mg Capsules PO. Medication Ordered: Keflex PO 500 mg (NOW).
--- NOTE | 2017-01-30 12:08 | ED MED RECONCILIATION SUMMARY ---
Patient: SOFI SCHNEIDER Medication Reconciliation Report [facility] VisitID: [id number] [address] [place] [address] 81y, F Registration Date/Time: 01/28/2017 Weight: 68.0 kg Height/Length: 60 in. BMI: 29.3 ALLERGIES: Codeine The patient's Home Medications are listed below: CONTINUE TAKING THE FOLLOWING MEDICATIONS: Omeprazole Oral Sertraline HCl Oral The source(s) of the original Home Medication information: patient The following Medications were given to the patient in the Emergency Department: Morphine [IVP] IVP 4 mg, administered: 01/28/2017 6:10:00 PM GI COCKTAIL WHITE [PO] PO 30 mL, administered: 01/28/2017 7:37:00 PM Keflex [PO] PO 500 mg, administered: 01/28/2017 8:58:00 PM The following Medications were prescribed to the patient: Hydrocodone/APAP 5mg / 325mg: take 1 orally every 6 hours as needed for pain. Dispense ten (10). No refill. -- Tejinder Borrego Dr. Carafate 1 gm tablets: take 1 orally at bedtime as needed for indigestion, upset stomach or heartburn. Dispense thirty (30). No refills. Substitution is permissible. -- Tejinder Borrego Dr. Cephalexin 500 mg: take 1 capsule orally every 8 hours for 5 days. No refill.(disp 15 caps) -- Tejinder Borrego Dr.
--- NOTE | 2017-01-30 12:08 | ED MAR SUMMARY ---
..... Medication Administration Record [facility] [address] [place] [address] Patient: SOFI SCHNEIDER Visit ID: [id number] 81y, F Weight: 68.0 kg Height/Length: 60 in BMI: 29.3 ALLERGIES: Codeine Given 18:10 01/28/[address] RAniceto Medication Administered: MORPHINE [IVP], Dose: 4 mg IVP over 1 minute(s), Site: #1 left AC. Medication Ordered: Morphine IV 4 mg (once now. may repeat once for pain >5/10 in 15 min). Given 19:37 01/28/2017 Bethany Moore RAniceto Medication Administered: GI COCKTAIL WHITE [PO] (SIMETHICONE), Dose: 30 mL PO. Medication Ordered: GI Cocktail WHITE PO 30 mL (NOW). Given 20:58 01/28/2017 Davian Tejada RJettNJett Medication Administered: KEFLEX [PO] (CEPHALEXIN), Dose: 500 mg Capsules PO. Medication Ordered: Keflex PO 500 mg (NOW).
--- NOTE | 2017-01-30 12:08 | ED MED RECONCILIATION SUMMARY ---
Patient: SOFI SCHNEIDER Medication Reconciliation Report [facility] VisitID: [id number] [address] [place] [address] 81y, F Registration Date/Time: 01/28/2017 Weight: 68.0 kg Height/Length: 60 in. BMI: 29.3 ALLERGIES: Codeine The patient's Home Medications are listed below: CONTINUE TAKING THE FOLLOWING MEDICATIONS: Omeprazole Oral Sertraline HCl Oral The source(s) of the original Home Medication information: patient The following Medications were given to the patient in the Emergency Department: Morphine [IVP] IVP 4 mg, administered: 01/28/2017 6:10:00 PM GI COCKTAIL WHITE [PO] PO 30 mL, administered: 01/28/2017 7:37:00 PM Keflex [PO] PO 500 mg, administered: 01/28/2017 8:58:00 PM The following Medications were prescribed to the patient: Hydrocodone/APAP 5mg / 325mg: take 1 orally every 6 hours as needed for pain. Dispense ten (10). No refill. -- Tejinder Borrego Dr. Carafate 1 gm tablets: take 1 orally at bedtime as needed for indigestion, upset stomach or heartburn. Dispense thirty (30). No refills. Substitution is permissible. -- Tejinder Borrego Dr. Cephalexin 500 mg: take 1 capsule orally every 8 hours for 5 days. No refill.(disp 15 caps) -- Tejinder Borrego Dr.
== END 2017-01-28 21:15 | disposition home or self-care (01) ==
LOC: ED SRH 16:45
DX: K29.00 Acute gastritis without bleeding (principal); R10.13 Epigastric pain; N39.0 Urinary tract infection, site not specified; I10 Essential (primary) hypertension; E11.9 Type 2 diabetes mellitus without complications; Z88.5 Allergy status to narcotic agent; Z79.899 Other long term (current) drug therapy
CPT/HCPCS: 90004; 90100; 90469; 92031; 92235; 94001; 94060; 95059